=== PATIENT | male | born 1945 | race African-American/Black ===

== ENCOUNTER 2018-08-30 20:45 | Emergency (ER) | payer OTHER ==
[~2018-08-30] VITALS: Ht 170.2 cm; Wt 86.2 kg
[~2018-08-30 20:45] MED LIST: ADULT LOW DOSE81 MG PO; FIORICET 50-321 EACH PO; FLONASE 0.05%50 MCG NS; NIASPAN; PREDNISONE 20 M20 M1 PO; PRINIVIL10 MG PO; ZOLOFT; ZPAK PO
[2018-08-30 23:47] VITALS: BP 149/86
== END 2018-08-30 23:47 | disposition home or self-care (01) ==
LOC: ER 20:45
DX: R51 Headache (principal); I10 Essential (primary) hypertension

== ENCOUNTER 2020-04-21 16:24 | Emergency (ER) | payer OTHER ==
[~2020-04-21] VITALS: Ht 175.3 cm; Wt 90.7 kg
[2020-04-21] MEDS ORDERED: ALPRAZOLAM 0.50.5 M1 PO (16:36)
[2020-04-21] MEDS ORDERED: ZOLPIDEM TARTRA10 MG PO (16:37)
[2020-04-21] MEDS ORDERED: QUETIAPINE FUM200 MG PO (16:37)
[2020-04-21] MEDS ORDERED: BLOOD PRESSURE MED (16:38)
[2020-04-21 18:10] LABS: ABSOLUTE NEUTROPHILS 2.7 thou/uL (1.4-8.2); BASOPHILS 0.9 % (0.0-2.0); HEMATOCRIT 42.6 % (42.0-52.0); HEMOGLOBIN 14.4 gm/dL (14.0-18.0); LYMPHOCYTES 19.3 % (24.0-44.0); MCH 30.8 pg (26.0-34.0); MCHC 33.8 g/dL (28.0-37.0); MONOCYTES 15.5 % (1.0-8.0); PLATELET COUNT 181 thou/uL (150-400); POLYS 64.3 % (36.0-66.0); RBC 4.68 mil/uL (4.50-6.00); RDW 14.2 % (10.5-14.5); WBC 4.3 thou/uL (4.0-11.0)
[2020-04-21 18:19] LABS: CALCIUM 8.5 mg/dL (8.5-10.1); CREATININE 1.6 mg/dL (0.7-1.3)
[2020-04-21 19:42] VITALS: BP 166/82
--- NOTE | 2020-04-22 07:47 | EKG ---
[facility] [place] [address] ELECTROCARDIOGRAM REPORT Name: EDUARDO GOMEZ JR Room #: DEP [facility]#: [id number] Admission: 04/21/20 Attend Phys: Discharge: 04/21/20 Date of : 49 Report #: [id number] THIS REPORT FOR: cc: FAM - No family physician/PCP FAM - No family physician/PCP Gavin Tirado MD [facility] ~ THIS REPORT FOR: //name// [facility] ED Test Date: 2020-04-21 Test Time: 17:29:54 Pat Name: EDUARDO GOMEZ Department: Room: Gender: Safety Advisor: : 1945 Requested By: Rubio Sifuentes Order Number: [id number] MD: Gavin Tirado Measurements Intervals [place] Rate: 77 P: 34 AL: 170 QRS: -20 QRSD: 94 T: 48 QT: 378 QTc: 428 Interpretive Statements Sinus rhythm LVH by voltage Compared to ECG 02/23/2011 01:56:24 No significant change was found Electronically Signed On 04-22-2020 7:47:44 [employer] by Gavin Tirado [email or web address] <ELECTRONICALLY SIGNED> By: Gavin Tirado MD, FACC 04/22/20 [id number] [id number] Gavin Tirado MD, [facility] /EPI
== END 2020-04-21 20:49 | disposition home or self-care (01) ==
LOC: ER 16:24
PROVIDERS: Emergency Medicine
DX: R05 Cough (principal); M79.10 Myalgia, unspecified site; I10 Essential (primary) hypertension; Z79.82 Long term (current) use of aspirin; Z79.899 Other long term (current) drug therapy; Z20.828 Contact with and (suspected) exposure to other viral communicable diseases